=== PATIENT | male | born 1955 | race Caucasian/White ===

== ENCOUNTER 2017-10-04 21:30 | Emergency (ER) | payer BC ==
[~2017-10-04] VITALS: Ht 182.9 cm; Wt 85.0 kg
[2017-10-05 00:20] VITALS: BP 132/73; PULSE 86; TEMP 98.7
== END 2017-10-05 00:20 | disposition home or self-care (01) ==
LOC: COL.ER 21:30
DX: S51.812A Laceration without foreign body of left forearm, initial encounter (principal); S00.81XA Abrasion of other part of head, initial encounter; F17.210 Nicotine dependence, cigarettes, uncomplicated; W18.09XA Striking against other object with subsequent fall, initial encounter; Y92.59 Other trade areas as the place of occurrence of the external cause